=== PATIENT | male | born 1945 | race Caucasian/White ===

== ENCOUNTER 2017-01-22 09:32 | Emergency (ER) | payer MEDICARE ==
[~2017-01-22] VITALS: Ht 172.7 cm; Wt 86.4 kg
[~2017-01-22 09:32] MED LIST: DORZ10DR22 LEFT_EYE; WARF5TAB7 PO; WARF7.5T4 PO
[2017-01-22 09:46] VITALS: BP 134/83; PULSE 69; RESP 18; O2SAT 98
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
[2017-01-22 12:41] VITALS: BP 135/83; PULSE 69; RESP 18; O2SAT 98
== END 2017-01-22 12:54 | disposition home or self-care (01) ==
LOC: SED 09:32
DX: S06.0X1A Concussion with loss of consciousness of 30 minutes or less, initial encounter (principal); W22.8XXA Striking against or struck by other objects, initial encounter; Y93.89 Activity, other specified; Y92.814 Boat as the place of occurrence of the external cause; Y99.8 Other external cause status; Z79.01 Long term (current) use of anticoagulants; H40.9 Unspecified glaucoma; Z87.891 Personal history of nicotine dependence